=== PATIENT | female | born 1955 | race Caucasian/White ===

== ENCOUNTER → 2016-10-16 | Outpatient (CLI) | payer OTHER | LOC: FIMAGING 19:15 | PROVIDERS: ATTEND Family Medicine | DX: H53.50 Unspecified color vision deficiencies (principal); H57.12 Ocular pain, left eye ==

== ENCOUNTER 2018-08-31 09:26 | Day surgery (SDC) | payer OTHER ==
[2018-08-31] MEDS ORDERED: FLUMAZENIL 0.5 MG/5 ML MDV IVP PRN (09:33)
[2018-08-31] MEDS ORDERED: MIDAZOLAM 2 MG/2 ML VIAL IVP PRN (09:33)
[2018-08-31] MEDS ORDERED: ceFAZolin 2 GM/DEXTROSE 100 ML IV ONE (09:33)
[2018-08-31] MEDS ORDERED: fentaNYL 100 MCG/2 ML INJ IVP PRN (09:33)
[2018-08-31] MEDS ORDERED: NALOXONE HCL 0.4 MG/ML INJ IVP PRN (09:33)
[2018-08-31] MEDS ORDERED: NS 1,000 ML IV SCH (09:45)
[2018-08-31 10:37] LABS: INR 1.13 (0.83-1.16); PROTIME(PATIENT) 14.7 SEC (12.0-15.0)
--- NOTE | 2018-08-31 11:04 | PDPROPOC ---
Sedation Plan of Care Sedation Plan of Care: vital signs stable, mental status noted, patient educated of risks, benefits, alternatives, patient can tolerate sedation ASA Classification: ASA 2 Planned drugs: fentanyl, midazolam Mallampati Score: Class 2 Mallampati Reference Image: Patient passed 3-3-2 rule?: Yes
--- NOTE | 2018-08-31 11:28 | PDRADPRE ---
Radiology History & Physical Indication for procedure: cancer (Lymphoma - Need for manager long term care CV access for chemo/immunotherapy. Plan for Chest Port placement) Home medications: Levothroid, Synthroid 150 mcg PO DAILY 06/05/09 [Last Taken 08/30/18] Acyclovir 400 mg PO BID 08/30/18 [Last Taken 08/30/18] Allopurinol 300 mg PO DAILY 08/30/18 [Last Taken 08/30/18] Dexamethasone 4 mg PO BID 08/31/18 [Last Taken 08/30/18] Prochlorperazine Maleate 10 mg PO DAILY 08/31/18 [Last Taken 08/30/18] traMADol 50 mg PO DAILY 08/31/18 [Last Taken 08/30/18] Allergies/Adverse Reactions: meperidine HCl [From Demerol] Allergy (Mild, Verified 08/30/18 12:51) Itching Sulfa (Sulfonamide Antibiotics) Allergy (Verified 08/30/18 12:51) Mental status: A&Ox3 Heart exam: regular rate and rhythm Lungs exam: clear to auscultation Mallampati Score: Class 2
[2018-08-31] MEDS ORDERED: LIDO/EPI 1% **for epidural** 30 ML SDV ONE (11:31)
[2018-08-31] MEDS ORDERED: ACETAMINOPHEN 325 MG TAB PO PRN (12:30)
[2018-08-31] MEDS ORDERED: ONDANSETRON 4 MG/2 ML VIAL IVP PRN (12:30)
--- NOTE | 2018-08-31 12:30 | PDRADPN ---
Radiology Procedure Note Date of Procedure: 08/31/18 Radiologist: Juan Pablo Miller Anesthesia: IV Sedation Pre-op Diagnosis: Lymphoma Post-op Diagnosis: Lymphoma Indication: Lymphoma Procedure: Chest port Finding(s): Patent right IJ. Chest port tip of catheter at proximal right atrium. Inf/Abcess present in the surg proc area at time of surgery?: No
[2018-08-31 13:46] VITALS: BP 104/61
== END 2018-08-31 13:42 | disposition home or self-care (01) ==
LOC: FIMAGING 09:26
PROVIDERS: ATTEND Internal Medicine Hematology & Oncology
DX: Z45.1 Encounter for adjustment and management of infusion pump (principal); C85.90 Non-Hodgkin lymphoma, unspecified, unspecified site
CPT/HCPCS: J0690; J1642; J2250; J2310; J3010

== ENCOUNTER 2018-09-03 08:10 | Emergency (ER) | payer OTHER ==
--- NOTE | 2018-09-03 08:46 | EDPHY ---
H & P Time Seen by Provider: 09/03/18 08:33 HPI/ROS: CHIEF COMPLAINT: Right-sided chest pain HISTORY OF PRESENT ILLNESS: The patient is a 63-year-old female diagnosed with lymphoma who started chemotherapy on . She treatment on both and Wednesday by Dr. Gonzales. This morning she woke up with pain under her right breast. It is sharp and pleuritic. She feels mildly short of breath. She denies fevers or chills. No cough. No leg pain or swelling. No previous DVT or pulmonary embolus REVIEW OF SYSTEMS: 10 systems were reveiwed and are negative with the exception of the elements mentioned in the history of present illness. Past Medical/Surgical History: Includes lymphoma, hypothyroidism Past surgical history: Includes total abdominal hysterectomy, appendectomy, tubal ligation x2 Social history: Patient does not smoke Smoking Status: Never smoked Physical Exam: Vitals noted. Heart rate 59. GENERAL: Well-appearing, in no acute distress, alert. HEENT: Eyes normal to inspection, normal pharynx, no signs of dehydration. NECK: Normal, supple. RESPIRATORY: Clear to auscultation bilaterally, no rales, rhonchi or wheezing. CVS: Regular rate and rhythm, no rubs, murmurs, or gallops. ABDOMEN: Soft, nontender, nondistended, no organomegaly. BACK: Normal to inspection, no CVA tenderness. SKIN: Normal color, no rash, warm, dry. No pallor. EXTREMITIES: No pedal edema, no calf tenderness, no Homans sign or cords, no joint swelling. NEURO/PSYCH: Alert and oriented, normal mood and affect, normal motor sensory exam. Constitutional: Initial Vital Signs Temperature (C) 36.8 C 09/03/18 08:16 Heart Rate 59 L 09/03/18 08:16 Respiratory Rate 16 09/03/18 08:16 Blood Pressure 144/67 H 09/03/18 08:16 O2 Sat (%) 97 09/03/18 08:16 O2 Delivery Mode Room Air Allergies/Adverse Reactions: meperidine HCl [From Demerol] Allergy (Mild, Verified 08/30/18 12:51) Itching Sulfa (Sulfonamide Antibiotics) Allergy (Verified 08/30/18 12:51) Home Medications: Medication Instructions Recorded Levothroid, Synthroid 150 mcg PO DAILY 06/05/09 Acyclovir 400 mg PO BID 08/30/18 Allopurinol 300 mg PO DAILY 08/30/18 Dexamethasone 4 mg PO BID 08/31/18 Prochlorperazine Maleate 10 mg PO DAILY 08/31/18 traMADol 50 mg PO DAILY 08/31/18 Hydrocodone/APAP 5/325 [[place] 1 - 2 tab PO Q4 #13 tab 09/03/18 5/325 (RX)] Medical Decision Making - Diagnostics Imaging Results: Imaging Impressions Chest X-Ray 09/03/18 08:43 Impression: Negative chest. ED Course/Re-evaluation: In the emergency department I discussed possible etiologies with the patient. I answered all her questions. IV was placed. Laboratory studies, chest x-ray and EKG were obtained. Patient was given Toradol 30 mg IV for pain. EKG shows normal sinus rhythm, normal rate, normal axis, normal intervals. There are no ST or T-wave abnormalities. EKG is normal as interpreted by me. The patient's white count was normal. The patient's hematocrit was low at 28. Previous hematocrit was 30. Chemistry panel was unremarkable. Normal potassium. Phosphorus was elevated at 4.8. Total protein elevated at 5.7. D- dimer is elevated 1.24. I discussed the results with the patient. Due to the patient's elevated D- dimer and pleuritic chest pain a CT angiogram was ordered. CT angiogram chest: Please refer the dictated report. No acute disease noted. Enlarged spleen. I discussed the results with the patient. I answered all of her questions. She is given warnings prior to leaving. Discussed case with Dr. Gonzales. He is aware the findings. He feels comfortable discharge. He recommend the patient receive a prescription of hydrocodone. This was written. Differential Diagnosis: My differential includes but is not limited to pleurisy, bronchitis, pulmonary embolus, pneumonia, bronchitis, muscle strain, costochondritis, tumor lysis syndrome - Data Points Laboratory Results: Laboratory Results 09/03/18 08:40 09/03/18 08:40 09/03/18 09/03/18 09/03/18 08:45 08:44 08:40 WBC RBC Hgb POC Hgb 9.5 gm/dL L gm/dL (12.6-16.3) Hct POC Hct 28 % L % (38-47) MCV MCH MCHC RDW Plt Count MPV Neut % (Auto) Lymph % (Auto) [place] % (Auto) Eos % (Auto) Baso % (Auto) Nucleat RBC Rel Count Absolute Neuts (auto) Absolute Lymphs (auto) Absolute Monos (auto) Absolute Eos (auto) Absolute Basos (auto) Absolute Nucleated RBC Immature Gran % Immature Gran # RBC/WBC/PLT Morphology Platelet Estimate PT INR APTT D-Dimer POC Sodium 145 mEq/L mEq/L (135-145) Sodium 142 mEq/L mEq/L (135-145) POC Potassium 4.1 mEq/L mEq/L (3.3-5.0) Potassium 4.2 mEq/L mEq/L (3.5-5.2) POC Chloride 111 mEq/L H mEq/L (97-110) Chloride 115 mEq/L H mEq/L (97-110) Carbon Dioxide 22 mEq/l mEq/l (22-31) POC Total CO2 23 mEq/L mEq/L (22-31) Anion Gap 5 mEq/L L mEq/L (6-14) POC BUN 20 mg/dL mg/dL (7-23) BUN 21 mg/dL mg/dL (7-23) Creatinine 0.8 mg/dL mg/dL (0.6-1.0) POC Creatinine 0.8 mg/dL mg/dL (0.6-1.0) Estimated GFR > 60 Glucose 93 mg/dL mg/dL (70-100) POC Glucose 95 mg/dL mg/dL (70-100) Uric Acid 4.0 mg/dL mg/dL (2.5-6.8) Calcium 9.5 mg/dL mg/dL (8.5-10.4) Phosphorus 4.8 mg/dL H mg/dL (2.5-4.5) Total Bilirubin 0.4 mg/dL mg/dL (0.1-1.4) Conjugated Bilirubin 0.4 mg/dL mg/dL (0.0-0.5) Unconjugated Bilirubin 0.0 mg/dL mg/dL (0.0-1.1) AST 27 IU/L IU/L (14-46) ALT 36 IU/L IU/L (9-52) Alkaline Phosphatase 76 IU/L IU/L (38-126) POC Troponin I 0.00 ng/mL ng/mL (0.00-0.08) Total Protein 5.7 g/dL L g/dL (6.3-8.2) Albumin 3.5 g/dL g/dL (3.5-5.0) Lipase 59 IU/L IU/L (23-300) 09/03/18 09/03/18 08:40 08:40 WBC 4.50 10^3/uL 10^3/uL (3.80-9.50) RBC 3.53 10^6/uL L 10^6/uL (4.18-5.33) Hgb 8.5 g/dL L g/dL (12.6-16.3) POC Hgb Hct 28.4 % L % (38.0-47.0) POC Hct MCV 80.5 fL L fL (81.5-99.8) MCH 24.1 pg L pg (27.9-34.1) MCHC 29.9 g/dL L g/dL (32.4-36.7) RDW 17.9 % H % (11.5-15.2) Plt Count 188 10^3/uL 10^3/uL (150-400) MPV 10.3 fL fL (8.7-11.7) Neut % (Auto) 84.2 % H % (39.3-74.2) Lymph % (Auto) 8.7 % L % (15.0-45.0) [place] % (Auto) 6.4 % % (4.5-13.0) Eos % (Auto) 0.0 % L % (0.6-7.6) Baso % (Auto) 0.0 % L % (0.3-1.7) Nucleat RBC Rel Count 0.0 % % (0.0-0.2) Absolute Neuts (auto) 3.79 10^3/uL 10^3/uL (1.70-6.50) Absolute Lymphs (auto) 0.39 10^3/uL L 10^3/uL (1.00-3.00) Absolute Monos (auto) 0.29 10^3/uL L 10^3/uL (0.30-0.80) Absolute Eos (auto) 0.00 10^3/uL L 10^3/uL (0.03-0.40) Absolute Basos (auto) 0.00 10^3/uL L 10^3/uL (0.02-0.10) Absolute Nucleated RBC 0.00 10^3/uL 10^3/uL (0-0.01) Immature Gran % 0.7 % % (0.0-1.1) Immature Gran # 0.03 10^3/uL 10^3/uL (0.00-0.10) RBC/WBC/PLT Morphology TNP Platelet Estimate TNP PT 13.9 SEC SEC (12.0-15.0) INR 1.05 (0.83-1.16) APTT 24.9 SEC SEC (23.0-38.0) D-Dimer 1.24 ug/mLFEU H ug/mLFEU (0.00-0.50) POC Sodium Sodium POC Potassium Potassium POC Chloride Chloride Carbon Dioxide POC Total CO2 Anion Gap POC BUN BUN Creatinine POC Creatinine Estimated GFR Glucose POC Glucose Uric Acid Calcium Phosphorus Total Bilirubin Conjugated Bilirubin Unconjugated Bilirubin AST ALT Alkaline Phosphatase POC Troponin I Total Protein Albumin Lipase Point of Care Test Results: Chemistry 09/03/18 09/03/18 08:45 08:44 POC Sodium 145 mEq/L mEq/L (135-145) POC Potassium 4.1 mEq/L mEq/L (3.3-5.0) POC Chloride 111 mEq/L H mEq/L (97-110) POC Total CO2 23 mEq/L mEq/L (22-31) POC BUN 20 mg/dL mg/dL (7-23) POC Creatinine 0.8 mg/dL mg/dL (0.6-1.0) POC Glucose 95 mg/dL mg/dL (70-100) POC Troponin I 0.00 ng/mL ng/mL (0.00-0.08) ISTAT H&H 09/03/18 08:45 POC Hgb 9.5 gm/dL L gm/dL (12.6-16.3) POC Hct 28 % L % (38-47) Departure - Departure Disposition: Home, Routine, Self-Care Clinical Impression: Chest pain Qualifiers: Chest pain type: other chest pain Qualified Code(s): R07.89 - Other chest pain Condition: Good Instructions: Chest Pain (ED) Additional Instructions: Return with increasing pain, shortness of breath, fever or any other concerns. Referrals: Felix Gonzales MD [Primary Care Provider] - 3-4 days, if not improved Prescriptions: Hydrocodone/APAP 5/325 [[place] 5/325 (RX)] 1 - 2 tab PO Q4 #13 tab
[2018-09-03 09:19] LABS: INR 1.05 (0.83-1.16); PROTIME(PATIENT) 13.9 SEC (12.0-15.0)
[2018-09-03 09:20] LABS: PLATELET COUNT 188 10^3/uL (150-400)
[2018-09-03] MEDS ORDERED: IOHEXOL 350mgI/ML (OMNIPAQUE) 150 ML BTL IV ONE (09:36)
[2018-09-03 10:08] VITALS: BP 150/80
--- NOTE | 2018-09-03 14:52 | CPEKG ---
Test Reason : OPEN Blood Pressure : / mmHG Vent. Rate : 058 BPM Atrial Rate : 059 BPM P-R Int : 156 ms QRS Dur : 085 ms QT Int : 442 ms P-R-T Axes : 057 002 019 degrees QTc Int : 435 ms Sinus rhythm Borderline T wave abnormalities Confirmed by Galina Christiansen ([id number]) on 09/03/2018 2:52:11 PM Referred By: Galina Christiansen Confirmed By:Galina Christiansen
== END 2018-09-03 10:39 | disposition home or self-care (01) ==
DX: R07.89 Other chest pain (principal); C85.90 Non-Hodgkin lymphoma, unspecified, unspecified site; E03.9 Hypothyroidism, unspecified
CPT/HCPCS: 82435-PO; 82565-PO; 82947-PO; 84132-PO; 84295-PO; 84484-ER; 84520-PO; 85014-ER; Q9967

== ENCOUNTER → 2018-10-26 | Outpatient (CLI) | payer OTHER | LOC: FIMAGING 14:31 | PROVIDERS: ATTEND Internal Medicine Hematology & Oncology | DX: R50.9 Fever, unspecified (principal); R06.02 Shortness of breath; C85.90 Non-Hodgkin lymphoma, unspecified, unspecified site; Z92.21 Personal history of antineoplastic chemotherapy ==